=== PATIENT | male | born 1945 | race Caucasian/White ===

== ENCOUNTER → 2023-09-19 | Outpatient (REF) | payer MEDICARE, OTHER ==
[2023-09-19 16:31] LABS: BASO # 0.1 10^3/uL (0.0-0.2); BASO % 0.7 % (0.0-1.0); EOS # 0.5 10^3/uL (0.0-0.5); HEMATOCRIT 38.3 % (42.0-52.0); HEMOGLOBIN 12.3 g/dl (13.5-17.5); LYMPH # 1.9 10^3/uL (1.5-5.0); LYMPH % 23.1 % (24.0-44.0); MEAN CORPUSCULAR HEMOGLOBIN 27.8 pg (27.0-33.0); MEAN CORPUSCULAR HGB CONC 32.1 g/dl (32.0-36.5); MEAN CORPUSCULAR VOLUME 86.5 fl (80.0-96.0); MONO # 0.5 10^3/uL (0.0-0.8); MONO % 6.7 % (2.0-8.0); NEUTROPHILS # 5.1 10^3/uL (1.5-8.5); NEUTROPHILS % 63.3 % (36.0-66.0); PLATELET COUNT, AUTOMATED 258 10^3/uL (150-450); RED BLOOD COUNT 4.43 10^6/uL (4.30-6.10); WHITE BLOOD COUNT 8.1 10^3/uL (4.0-10.0)
[2023-09-19 16:43] LABS: ERYTHROCYTE SEDIMENTATION RATE 74 mm/hr (0-20)
[2023-09-19 16:53] LABS: IMMUNOGLOBULIN A 196.9 MG/DL (40-350)
[2023-09-19 16:54] LABS: APPEARANCE, URINE CLEAR (CLEAR); BACTERIA, URINE AUTO NEGATIVE (NEGATIVE); BILIRUBIN, URINE AUTO NEGATIVE (NEGATIVE); BLOOD, URINE BLOOD NEGATIVE (NEGATIVE); COLOR, URINE YELLOW (YELLOW); GLUCOSE, URINE (UA) AUTO NEGATIVE (NEGATIVE); KETONE, URINE AUTO NEGATIVE (NEGATIVE); LEUKOCYTE ESTERASE, URINE AUTO NEGATIVE (NEGATIVE); NITRITE, URINE AUTO NEGATIVE (NEGATIVE); PROTEIN, URINE AUTO 1+ mg/dL (NEGATIVE); RBC, URINE AUTO 6 /HPF (0-3); SPECIFIC GRAVITY URINE AUTO 1.013 (1.002-1.035); SQUAMOUS EPITHELIAL CELL UR AU 0 /HPF (0-6); UROBILINOGEN, URINE AUTO 0.2 mg/dL (0.0-2.0); WBC, URINE AUTO 2 /HPF (0-3)
[2023-09-19 16:55] LABS: C REACTIVE PROTEIN QUANTITATIV < 0.40 MG/DL (<1.0)
[2023-09-19 16:56] LABS: COMPLEMENT C3 128.8 MG/DL (90.0-170.0); COMPLEMENT C4 31.3 MG/DL (12-36); IMMUNOGLOBULIN G 1516 MG/DL (650-1600)
[2023-09-19 16:57] LABS: ALBUMIN 3.6 G/DL (3.2-5.2); ALKALINE PHOSPHATASE 134 U/L (46-116); ALT/SGPT 49 U/L (7.0-40); AST/SGOT 21 U/L (<34); BILIRUBIN,TOTAL 0.5 MG/DL (0.3-1.2); BLOOD UREA NITROGEN 20 MG/DL (9-23); CALCIUM LEVEL 8.2 MG/DL (8.3-10.6); CARBON DIOXIDE LEVEL 27 MMOL/L (20-31); CHLORIDE LEVEL 105 MMOL/L (98-107); CREATININE FOR GFR 1.07 MG/DL (0.70-1.30); GLOMERULAR FILTRATION RATE > 60.0 (>42); GLUCOSE, FASTING 80 MG/DL (74-106); POTASSIUM SERUM 4.4 MMOL/L (3.5-5.1); SODIUM LEVEL 139 MMOL/L (136-145); TOTAL 25(OH) VITAMIN D 38.5 NG/ML (20.0-100.0); TOTAL PROTEIN 6.9 G/DL (5.7-8.2)
[2023-09-19 17:33] LABS: HEPATITIS C VIRUS ABY INDEX 0.07 INDEX (<0.8)
[2023-09-19 17:34] LABS: HEPATITIS B CORE ANTIBODY IGM NEGATIVE (NEGATIVE)
[2023-09-19 18:04] LABS: TOTAL PROTEIN,RANDOM URINE 28.7 MG/DL (0.0-14.0)
[2023-09-19 18:09] LABS: CREATININE,RANDOM URINE 59.4 MG/DL
[2023-09-21 19:07] LABS: ANGIOTENSIN 1 CONVERTING ENZYM 32 U/L (14-82); COMPLEMENT TOTAL (CH50) > 60 U/mL (>41); VITAMIN D 1,25 DIHYDROXY 40.7 pg/mL (24.8-81.5)
== END ==
LOC: M SFHCRHEU 13:34
PROVIDERS: ATTEND Internal Medicine Rheumatology
DX: Z01.89 Encounter for other specified special examinations (principal); E83.51 Hypocalcemia; R76.8 Other specified abnormal immunological findings in serum; R22.9 Localized swelling, mass and lump, unspecified; H04.123 Dry eye syndrome of bilateral lacrimal glands; M25.50 Pain in unspecified joint; Z79.899 Other long term (current) drug therapy